=== PATIENT | female | born 1990 | race American Indian/Alaskan Native ===

== ENCOUNTER 2020-10-17 07:12 | Emergency (ER) | payer SELFPAY ==
[2020-10-17 07:49] VITALS: BP 114/59
--- NOTE | 2020-10-17 08:53 | XRay Report ---
CHEST 2 VIEWS INDICATION / CLINICAL INFORMATION: SOB, cough. COMPARISON: None available. FINDINGS: SUPPORT DEVICES: None. HEART / MEDIASTINUM: No significant abnormality. LUNGS / PLEURA: No significant pulmonary or pleural abnormality. No pneumothorax. ADDITIONAL FINDINGS: No significant additional findings. IMPRESSION: 1. No acute findings. Signer Name: Nando Castillo MD Signed: 10/17/2020 8:48 AM Workstation Name: [id number]
[2020-10-17] MEDS ORDERED: IBUPROFEN 800 MG TAB PO ONE (09:27)
[2020-10-17] MEDS ORDERED: DOCUSATE SODIUM 100 MG/10 ML ORAL LIQD PO ONE (09:27)
--- NOTE | 2020-10-17 09:27 | Emergency Department Report ---
Minor Respiratory - HPI Chief Complaint: Upper Respiratory Infection Stated Complaint: CHEST PAIN/COUGH Time Seen by Provider: 10/17/20 09:19 Pain Location: Facial, Throat, Ear, Chest Severity: mild Minor Respiratory: Yes Rhinorrhea, Yes Able to Tolerate Fluids, Yes Ear Pain, Yes Cough, No Sore Throat, No Sick Contacts, No Hemoptysis, No Chest Pain, No Shortness of Breath, No Fever Other History: Patient is a 30-year-old -[place] female comes to the ER complaining of cough, congestion and earache. She states this has been ongoing for several weeks. She has been to the urgent care and has had an x-ray that was normal. She has had 5 - Covid test. Patient smokes cigarettes and marijuana. Patient was educated on cessation of these activities. Patient denies any fever or chills. Her cough is bringing out nothing. She reports that her lymph nodes on the right side of her neck were swollen yesterday. However, they have come down today. Patient reports pain in both ears but right more than left. Although she does have what she says more difficulty hearing out of the left ear. She denies any dizziness or presyncope symptoms. Patient is ambulatory, nontoxic and [id number] on arrival to the ER. ED Review of Systems ROS: Stated complaint: CHEST PAIN/COUGH Other details as noted in HPI Comment: All other systems reviewed and negative ED Past Medical Hx - Past Medical History Previous Medical History?: No - Surgical History Past Surgical History?: No - Family History Family history: no significant - Social History Smoking Status: Current Every Day Smoker Substance Use Type: Marijuana - Medications Home Medications: Home Medications Medication Instructions Recorded Confirmed Last Taken Type Amoxicillin [Trimox CAP] 500 mg PO BID #20 capsule 10/17/20 Unknown Rx Benzonatate [Tessalon Perles] 100 mg PO Q12H PRN #20 capsule 10/17/20 Unknown Rx Minor Respiratory Exam - Exam General: Vital signs noted. No distress. Alert and acting appropriately. HEENT: Yes Moist Mucous Membranes, No Pharyngeal Erythema, No Pharyngeal Exudates, No Rhinorrhea, No Conjuctival Injection, No Frontal Tenderness, No Maxillary Tenderness Ear: Right TM Erythema, Both EAC Discharge, Neither TM Bulge, Neither EAC Pain Neck: Yes Adenopathy (r auricular), Yes Supple Lungs: Yes Good Air Exchange, No Wheezes, No Ronchi, No Stridor, No Cough, No Labored Respirations, No Retractions, No Use of Accessory Muscles, No Other Abnormal Lung Sounds Heart: Yes Regular, No Murmur Abdomen: Yes Normal Bowel Sounds, No Tenderness, No Peritoneal Signs Skin: No Rash, No Edema Neurologic: Alert and oriented, no deficits. Musculoskeletal: Unremarkable. ED Course Vital Signs 10/17/20 07:46 Temperature 97.5 F L Pulse Rate 70 Respiratory 20 Rate Blood Pressure 114/59 O2 Sat by Pulse 97 Oximetry ED Medical Decision Making - Radiology Data Radiology results: report reviewed, image reviewed interpreted by me: obie nap - Medical Decision Making lungs cta xray chest nap no fever or chills no hypotension No tachycardia [id number], ambulatory and taking p.o. Ears flushed by nursing staff. right TM red- will treat for OM. Patient educated on smoking and marijuana cessation. Patient being discharged home with discharge instructions including follow-up, diet, activity and medications. She verbalizes understanding of discharge plan of care Vital Signs 10/17/20 07:46 Temperature 97.5 F L Pulse Rate 70 Respiratory 20 Rate Blood Pressure 114/59 O2 Sat by Pulse 97 Oximetry - Differential Diagnosis uri Critical care attestation.: If time is entered above; I have spent that time in minutes in the direct care of this critically ill patient, excluding procedure time. ED Disposition Clinical Impression: Impacted ear wax, Cough, Smoker, Otitis media Disposition: - TO HOME OR SELFCARE Is pt being admited?: No Does the pt Need Aspirin: No Condition: Stable Instructions: Otitis Media, Adult Additional Instructions: meds as ordered today motrin or tylenol for pain diet and activity as tolerated stop smoking follow up with pcp referral below over the counter debrox can be used to keep your ears clean of this wax Prescriptions: Benzonatate [Tessalon Perles] 100 mg PO Q12H PRN #20 capsule PRN Reason: Cough Amoxicillin [Trimox CAP] 500 mg PO BID #20 capsule Referrals: RENE MADRIGAL MD [Staff Physician] - 3-5 Days Time of Disposition: 09:25
== END 2020-10-17 10:07 | disposition home or self-care (01) ==
LOC: ED 07:12
DX: H61.22 Impacted cerumen, left ear (principal); H66.92 Otitis media, unspecified, left ear; R05 Cough; F17.200 Nicotine dependence, unspecified, uncomplicated; F12.90 Cannabis use, unspecified, uncomplicated; Z79.899 Other long term (current) drug therapy
CPT/HCPCS: 71046